=== PATIENT | male | born 1960 | race Caucasian/White ===

== ENCOUNTER 2018-10-03 07:15 | Emergency (ER) | payer SELFPAY ==
[~2018-10-03] VITALS: Ht 167.6 cm; Wt 52.0 kg
[2018-10-03 07:17] VITALS: BP 121/76
[2018-10-03] MEDS ORDERED: LIDOCAINE-MPF 1%, 5ML ONE (07:30)
[2018-10-03] MEDS ORDERED: LIDOCAINE 2%, 20ML INFIL ONE (07:30)
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
== END 2018-10-03 10:08 | disposition home or self-care (01) ==
LOC: ED 10:06
DX: S01.01XA Laceration without foreign body of scalp, initial encounter (principal); Y08.89XA Assault by other specified means, initial encounter; Y93.89 Activity, other specified; Y92.89 Other specified places as the place of occurrence of the external cause; Y99.8 Other external cause status
CPT/HCPCS: 12032; 70450; 99284; J3490